=== PATIENT | male | born 1990 | race African-American/Black ===

== ENCOUNTER 2019-08-26 11:12 | Emergency (ER) | payer SELFPAY ==
[~2019-08-26] VITALS: Ht 175.3 cm; Wt 84.1 kg
[2019-08-26] MEDS: METHOCARBAMOL 500 MG TABLET PO ONE (13:06)
[2019-08-26] MEDS: HYDROCODONE/ACETAMINOPHEN 5-325 MG TABLET PO ONE (13:06)
[2019-08-26 13:36] VITALS: BP 137/91
== END 2019-08-26 13:46 | disposition home or self-care (01) ==
LOC: EMS 11:16
DX: M54.42 Lumbago with sciatica, left side (principal); F17.210 Nicotine dependence, cigarettes, uncomplicated; F12.90 Cannabis use, unspecified, uncomplicated; Z98.890 Other specified postprocedural states
CPT/HCPCS: 99406